=== PATIENT | female | born 1985 | race Asian ===

== ENCOUNTER 2019-08-10 21:15 | Emergency (ER) | payer BC, OTHER ==
[2019-08-10] MEDS ORDERED: Amoxicillin 875 MG Tab PO STA (22:10)
--- NOTE | 2019-08-10 22:12 | EDM.PDOC ---
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 No rash. No cough. No known exposures. Onset: Gradual Onset Date: 08/09/19 Duration: Day(s): (1+), Constant Location: Reports: Neck (throat) Quality: Reports: Other (sore) Severity: Moderate Improves with: Reports: Medication Worsens with: Reports: Other (swallowing) Context: Reports: Other (see HPI) Associated Symptoms: Reports: Fever/Chills. 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 Denies: Ear Pain, Rhinitis Respiratory: Reports: No Symptoms Cardiovascular: Reports: No Symptoms GI/Abdominal: Reports: No Symptoms : Reports: No Symptoms Musculoskeletal: Reports: No Symptoms Skin: Reports: No Symptoms Neurological: Reports: No Symptoms Psychiatric: Reports: No Symptoms ED EXAM, GENERAL - Physical Exam Exam: See Below Exam Limited By: No Limitations General Appearance: Alert, WD/WN, No Apparent Distress Eye Exam: Bilateral Eye: Normal Inspection Ears: Normal External Exam, Normal Canal, Hearing Grossly Normal, Normal TMs Ear Exam: Bilateral Ear: Auricle Normal, Canal Normal, TM normal Nose: Normal Inspection, No Blood Throat/Mouth: Normal Lips, Normal Voice, No Airway Compromise, Other (some throat redness) Head: Atraumatic, Normocephalic Neck: Normal Inspection Respiratory/Chest: No Respiratory Distress, Lungs Clear, Normal Breath Sounds, No Accessory Muscle Use Cardiovascular: Regular Rate, Rhythm, No Edema Extremities: Normal Inspection, Normal Range of Motion, Non-Tender, No Pedal Edema Neurological: Alert, Oriented, CN II-XII Intact, Normal Cognition, No Motor/ Sensory Deficits Psychiatric: Normal Affect, Normal Mood Skin Exam: Warm, Dry, Intact, Normal Color, No Rash Course - Vital Signs Last Recorded V/S: Last Vital Signs Temp 36.2 C 08/10/19 21:44 Pulse 108 H 08/10/19 21:44 Resp 18 08/10/19 21:44 BP 110/63 08/10/19 21:44 Pulse Ox 97 08/10/19 21:44 - Orders/Labs/Meds Orders: Active Orders 24 hr Category Date Time Status INFLUENZA A+B AG SCREEN [RM] Stat Lab 08/10/19 21:50 Ordered Isolation [COMM] Routine Oth 08/10/19 21:17 Ordered Meds: Medications Discontinued Medications Generic Name Dose Route Start Last Admin Trade Name Concha PRN Reason Stop Dose Admin Amoxicillin 875 mg 08/10/19 22:10 Amoxil PO 08/10/19 22:11 NOW STA Departure - Departure Time of Disposition: 22:25 Disposition: Home, Self-Care 01 Condition: Fair Clinical Impression: Strep throat - Discharge Information *PRESCRIPTION DRUG MONITORING PROGRAM REVIEWED*: No *COPY OF PRESCRIPTION DRUG MONITORING REPORT IN PATIENT BUFFY: No Prescriptions: Amoxicillin 875 mg PO Q12H #19 tablet Referrals: Arely Llanos CNM [Primary Care Provider] - Forms: ED Department Discharge Additional Instructions: Take Amoxicillin every 12 hrs until gone. Take acetaminophen up to 650 mg every 4 hrs and/or ibuprofen 400 mg every 6 hrs for pain and fever control. Drink ample fluids. Frequent hand washing to prevent spread. Rest. No working for 24 hrs. Recheck as needed. Sepsis Event Note - Evaluation Sepsis Screening Result: No Definite Risk - Focused Exam Vital Signs: Vital Signs Temp Pulse Resp BP Pulse Ox 08/10/19 21:44 36.2 C 108 H 18 110/63 97 Date Exam was Performed: 08/10/19 Time Exam was Performed: 22:12 - My Orders Last 24 Hours: My Active Orders 08/10/19 21:17 Isolation [COMM] Routine 08/10/19 21:50 INFLUENZA A+B AG SCREEN [RM] Stat - Assessment/Plan Last 24 Hours: My Active Orders 08/10/19 21:17 Isolation [COMM] Routine 08/10/19 21:50 INFLUENZA A+B AG SCREEN [RM] Stat
[2019-08-10] MEDS ORDERED: Amoxicillin 500 MG Cap PO ONE (22:51)
== END 2019-08-10 23:08 | disposition home or self-care (01) ==
LOC: JP.ED 21:15
DX: J02.0 Streptococcal pharyngitis (principal)
CPT/HCPCS: 87804; 87880; 99283; A9270

== ENCOUNTER 2022-06-03 10:20 | Emergency (ER) | payer BC ==
[2022-06-03] MEDS ORDERED: Ondansetron 4 MG/2 ML SDV IVPUSH ONE (10:42)
[2022-06-03] MEDS ORDERED: HYDROmorphone 0.5 MG/0.5 ML Syringe IVPUSH ONE (10:42)
[2022-06-03] MEDS ORDERED: Sodium Chloride 0.9% 1,000 ML IV SCH (10:45)
[2022-06-03 11:15] LABS: ESTIMATED GFR 99 mL/min (>60)
[2022-06-03] MEDS ORDERED: Sodium Chloride 0.9% 10 ML Syringe FLUSH ONE (11:42)
[2022-06-03] MEDS ORDERED: Sodium Chloride 0.9% 50 ML IV SCH (11:45)
[2022-06-03] MEDS ORDERED: Iopamidol 612 MG/ML 100 ML Bottle IV SCH (11:45)
[2022-06-03] MEDS ORDERED: metroNIDAZOLE/Normal Saline 500 MG in Premix Bag 1 BAG IV ONE (13:28)
== END 2022-06-03 13:48 | disposition home or self-care (01) ==
LOC: JP.ED 10:20
DX: K52.9 Noninfective gastroenteritis and colitis, unspecified (principal)
CPT/HCPCS: 36415; 74177; 80053; 81001; 81025; 82150; 85025; 86140; 96361; 96374; 96375; 99285; J1170; J2405; J3490; J7030; Q9967

== ENCOUNTER 2024-08-18 13:16 | Emergency (ER) | payer BC, OTHER ==
[2024-08-18] MEDS ORDERED: Sodium Chloride 0.9% 10 ML Syringe FLUSH PRN (13:47)
[2024-08-18] MEDS: Sodium Chloride 0.9% 1,000 ML IV STA (13:54)
[2024-08-18] MEDS: Ondansetron 4 MG/2 ML SDV IVPUSH ONE (13:55)
[2024-08-18 13:56] LABS: BASOPHILS PERCENT AUTO 0.1 % (0.1-1.3); EOSINOPHILS ABSOLUTE AUTO 0.03 K/uL (0.00-0.40); EOSINOPHILS PERCENT AUTO 0.2 % (0.0-5.4); HEMATOCRIT 46.9 % (34.3-46.0); IMMATURE GRAN ABSOLUTE AUTO 0.05 K/uL (0.00-0.23); IMMATURE GRAN PERCENT AUTO 0.4 % (0.0-0.7); LYMPHOCYTES ABSOLUTE AUTO 1.27 K/uL (0.8-3.3); LYMPHOCYTES PERCENT AUTO 9.4 % (11.4-47.7); MEAN CORPUSCULAR HEMOGLOBIN 28.4 pg (31.6-35.5); MEAN CORPUSCULAR HGB CONC 34.1 g/dL (31.6-35.5); MEAN CORPUSCULAR VOLUME 83.2 fL (81.4-99.0); MONOCYTES ABSOLUTE AUTO 0.85 K/uL (0.20-0.90); MONOCYTES PERCENT AUTO 6.3 % (3.3-12.6); NEUTROPHILS ABSOLUTE AUTO 11.27 K/uL (1.0-7.6); NEUTROPHILS PERCENT AUTO 83.6 % (40.0-78.1); PLATELET COUNT,PLT 303 K/uL (130-375); RED BLOOD CELL COUNT 5.64 M/uL (3.77-5.24); WHITE BLOOD CELL COUNT,WBC 13.5 K/uL (3.2-11.0)
[2024-08-18] MEDS: fentaNYL 100 MCG/2 ML SDV IVPUSH ONE (13:57)
[2024-08-18 14:07] LABS: BASOPHILS ABSOLUTE AUTO 0.02 K/uL (0.00-0.10)
[2024-08-18] MEDS: Sodium Chloride 0.9% 80 ML IV SCH (14:32)
[2024-08-18] MEDS: Iopamidol 612 MG/ML 100 ML Bottle IV ONE (14:32)
[2024-08-18 14:34] LABS: A/G RATIO 1.1 (1.2-2.2); ALANINE AMINOTRANSFERASE,ALT 13 U/L (12-78); ALBUMIN 4.3 g/dL (3.4-5.0); ALKALINE PHOSPHATASE 71 U/L (46-116); ASPARTATE AMNIOTRANSFERASE,AST 8 U/L (15-37); BILIRUBIN TOTAL 1.3 mg/dL (0.2-1.0); BLOOD UREA NITROGEN,BUN 18 mg/dL (7-18); CARBON DIOXIDE,CO2 26 mmol/L (21-32); CHLORIDE,CL 102 mmol/L (100-108); CREATININE 0.9 mg/dL (0.6-1.0); EST CRCL DRUG DOSING (CG) 62.07 mL/min; ESTIMATED GFR 85 mL/min (>60); GLUCOSE RANDOM 90 mg/dL (74-106); POTASSIUM,K 3.7 mmol/L (3.6-5.2); PROTEIN TOTAL,TP 8.1 g/dL (6.4-8.2); SODIUM,NA 141 mmol/L (140-148); TROPONIN I HIGH SENSITIVITY < 4.0 pg/mL (<=60.3)
== END 2024-08-18 15:51 | disposition home or self-care (01) ==
LOC: JP.ED 13:16
DX: K52.9 Noninfective gastroenteritis and colitis, unspecified (principal); Z79.85 Long-term (current) use of injectable non-insulin antidiabetic drugs
CPT/HCPCS: 36415; 74177; 74177-26; 80053; 83605; 83690; 84484; 85025; 96361; 96374; 96375; 99283; 99284-25; J2405; J3010; J7030; Q9967